=== PATIENT | female | born 1980 | race Caucasian/White ===

== ENCOUNTER 2024-03-30 12:49 | Emergency (ER) | payer MEDICAID, SELFPAY ==
[2024-03-30 12:50] VITALS: BP 91/71; PULSE 130; RESP 20; TEMP 36.6; O2SAT 100; BMI 24.4
--- NOTE | 2024-03-30 13:32 | US_ITS ---
STUDY: ABDOMINAL ULTRASOUND - RIGHT UPPER QUADRANT REASON FOR VISIT: Female, 43 years old RUQ PAIN TECHNIQUE: Ultrasound evaluation of the right upper quadrant was performed with real-time and static martinez-scale imaging. TECHNICAL QUALITY: Limited. Examination limited by bowel gas. COMPARISON: None. FINDINGS: Liver: The liver measures 14.7 cm. There is normal echogenicity of the liver. The bile ducts are within normal limits. There is hepatic color flow. The direction of portal flow is hepatopetal. There is no demonstrated mass lesion. Gallbladder: Normal distended gallbladder. The gallbladder wall measures 3.4 mm. There is a negative sonographic Ramires''s sign. There is no pericholecystic fluid. There are no gallstones. Common Bile Duct (C.B.D.): The common bile duct measures 8.6 mm. Pancreas: Normal size of the head of the pancreas. Body and tail not visualized due to overlying bowel gas. There is normal echogenicity of the pancreas. There is no demonstrated pancreatic mass or cyst. Right Kidney: Normal size of the right kidney. The right kidney measures 9.1 cm x 5.7 cm x 4.4 cm. Normal renal cortex. The right cortex measures 1.2 cm. There is no demonstrated renal mass or cyst. There is no right hydronephrosis. US/Gallbladder IMPRESSION: Normal right upper quadrant ultrasound examination. Limited visualization of the body and tail portions of the pancreas. Electronically Signed: Magen Garcia MD at 15:39 EDT ,
--- NOTE | 2024-03-30 13:44 | EX.ED.DYSGE1 ---
HPI History of Present Illness Chief Complaint: Abd Pain Narrative Narrative: Chief complaint and HPI: Right upper quadrant abdominal pain. 43-year-old female with history of thoracic compression fractures with chronic pain, previous heroin abuse on Suboxone presents for evaluation of right upper quadrant abdominal pain. Patient states for the past couple days she has been having right upper quadrant abdominal pain. She endorses nausea and a couple episodes of nonbilious nonbloody emesis. She denies any fever, chills, URI symptoms, shortness of breath, chest pain, diarrhea, constipation, dysuria. The triage note states that the patient was complaining of chest pain, she denies this to me. She does endorse a mild cough. Patient has a history of a previous PEG tube in which she states she had it due to decreased p.o. intake from depression. It was prescribed for weight gain. Review of systems: See HPI Medications: As listed on the chart Allergies: As listed on the chart PFSH: Per chart Vital signs: As listed on the chart. Reviewed. Physical exam: Gen: A&O x3, NAD Head: Normocephalic, atraumatic Eyes: No sclera icterus, conjunctiva clear ENT: Dry mucous membranes Neck: Trachea midline, No JVD CV: Tachycardic, regular rhythm, no murmurs, no peripheral edema Resp: Lungs CTA BL, no w/r/c GI: Abd soft, non-distended, tender to palpation in the right upper quadrant, negative Ramires sign, no rebound or rigidity, healed previous G-tube ostomy Musc: Full ROM, no deformity Skin: Warm, dry Neuro: Alert, oriented, grossly intact, sensation intact Psych: Cooperative, anxious PFSH PFSH Allergy/AdvReac Type Severity Reaction Status Date / Time shellfish derived Allergy Severe Anaphylaxis Verified 03/30/24 12:53 phenytoin (From Dilantin) AdvReac Intermediate Vomiting Verified 03/30/24 12:53 Social History Smoking Status: Unknown if ever smoked EXAM Physical Exam Const Vital Signs: 03/30/24 12:50 Temperature 98 F Temperature Source Temporal Pulse Rate 130 H Respiratory Rate 20 H Blood Pressure 91/71 Blood Pressure Mean 77 Pulse Ox 100 Oxygen Delivery Method Room Air MDM MDM MDM Narrative Medical decision making narrative: 43-year-old female with history of chronic back pain, previous heroin abuse on Suboxone presents for evaluation of right upper quadrant abdominal pain. Differential diagnosis includes but is not limited to gastritis, cholelithiasis, cholecystitis, pancreatitis, viral illness. On presentation patient is tachycardic I suspect that this is likely due to dehydration as well as pain. Patient is also very anxious . NS bolus, morphine, Zofran, Pepcid ordered for pain. Abdominal pain workup ordered including ultrasound of the right upper quadrant. Will get chest x-ray to assess her cough. Laboratory workup as well as ultrasound pending at this time. Patient signed out to oncoming physician, final disposition pending results. Diagnostic: Interpreted by me/EM physician: Chest x-ray with no pneumonia, effusion, pneumothorax, cardiomegaly Impression: 1. Right upper quadrant abdominal pain 2. Cough 3. History of Heroin abuse on Suboxone Radiography Diagnostic Testing: Clinical Impression(s) from Imaging Studies Chest X-Ray 03/30/24 14:02 IMPRESSION: Normal x-ray examination of the chest. Electronically Signed: Magen Garcia MD at 14:15 EDT , Discharge Plan Triage Chief Complaint: Abd Pain ED Provider: Cipriano Samson Dx/Rx/DC Orders Primary Care Provider: Care Physician,No Primary Referrals: Care Physician,No Primary [Primary Care Provider] - Print Language: Filipino
--- NOTE | 2024-03-30 14:02 | RAD_ITS ---
STUDY: X-RAY CHEST REASON FOR EXAM: Female, 43 years old. Cough TECHNIQUE: Single AP portable view of the chest. COMPARISON: None. FINDINGS: The lungs are clear and expanded. There is no demonstrated pleural abnormality. Normal size heart. Normal mediastinum and ace. Normal visualized pulmonary arteries. Normal visualized aortic arch and descending thoracic aorta. Normal visualized thoracic spine. Normal visualized ribs, clavicles, and shoulders. There is no demonstrated abnormality of the visualized soft tissue structures of the upper abdomen. RAD/Chest 1 View (Portable) IMPRESSION: Normal x-ray examination of the chest. Electronically Signed: Magen Garcia MD at 14:15 EDT ,
[2024-03-30] MEDS: Ondansetron 4 MG/2 ML Vial IV (15:53)
[2024-03-30] MEDS: Morphine 4 MG/ML Syringe IV (15:53)
[2024-03-30] MEDS: 0.9% Normal Saline (1000mL) 1,000 ML 999 ML IV (15:54)
[2024-03-30] MEDS: Famotidine 200 MG/20 ML MDV 20 MG in 0.9% Normal Saline (Pres. free 8 ML 300 MG IV (15:57)
[2024-03-30 16:00] VITALS: BP 112/86; PULSE 74; RESP 16; O2SAT 98
[2024-03-30 16:00] LABS: ALB/GLOB Ratio 0.9 RATIO (0.9-2.4); AST(SGOT) 35 U/L (15-37); Alanine Aminotransfer ALT/SGPT 19 U/L (13-56); Albumin, Serum 3.4 g/dL (3.2-5.0); Alkaline Phosphatase 87 U/L (45-117); Anion Gap 13 (5-15); BUN 27 mg/dL (7-18); BUN/Creat Ratio 37.9 RATIO (10-20); Calcium,Total 9.2 mg/dL (8.5-10.1); Chloride 99 mmol/L (98-107); Creatinine, Serum 0.71 mg/dL (0.55-1.02); EST Glomerular Filtration Rate 94 mL/min (>60); Est Glom Filt Rate - Afr Amer 114 mL/min (>60); Estimated Creatinine Clearance 78.62 ml/min; Globulin 3.6 g/dL (2.2-4.2); Glucose 126 mg/dL (74-106); Lipase 14 U/L (13-75); Potassium 3.4 mmol/L (3.5-5.1); Sodium Level 139 mmol/L (136-145)
[2024-03-30 18:00] VITALS: BP 114/79; PULSE 71; RESP 16; O2SAT 99
[2024-03-30 18:13] LABS: Mucous, Urine 0 SEEN /hpf (<or=2+); Red Blood Cells-Urine 0 SEEN /hpf (0-5)
[2024-03-30 18:18] LABS: Color, Urine Amber (Yellow); Glucose, Dipstick Normal (Normal); Ketone-Dipstick Negative (Negative); Leukocyte Esterase-Dipstick 100 /ul (Negative); Nitrite-Dipstick Negative (Negative); Occult Blood-Urine Negative /ul (Negative); Protein-Dipstick 30 mg/dl (Negative); Specific Gravity, Urine 1.015 (1.002-1.030); Urine Bilirubin Dipstick Negative (Negative); Urine Clarity Sl. Cloudy (Clear); Urine Urobilinogen Normal (Normal)
[2024-03-30 18:30] LABS: Bacteria 1+ /hpf (None Seen); Squamous Epithelial Cells - UA 5-10 SEEN /hpf (5-10); White Blood Cells 5-10 SEEN /hpf (0-5)
[2024-03-30 18:31] LABS: Internal QC Validated? YES +Cl - CLEAR BKGD; Pregnancy, Urine Negative Negative
[2024-03-30 19:04] VITALS: BP 114/79; PULSE 71; RESP 16; TEMP 36.6; O2SAT 99
== END 2024-03-30 19:08 | disposition home or self-care (01) ==
PROVIDERS: Surgery; Emergency Provider Emergency Medicine; Visit Provider Emergency Medicine
DX: R10.11 Right upper quadrant pain (principal); R05.9 Cough, unspecified
CPT/HCPCS: 36415; 71045; 76705; 80053; 81001; 81025; 83690; 96361; 96374; 96375; 99282; J7030; A4216; J2405; J3490

== ENCOUNTER 2024-05-14 16:35 | Emergency (ER) | payer OTHER, MEDICAID, SELFPAY ==
[2024-05-14 16:37] VITALS: BP 137/79; PULSE 132; RESP 18; TEMP 36.3; O2SAT 98; BMI 23.6
--- NOTE | 2024-05-14 17:15 | EDS_ITS ---
HPI <SHERRI Floyd - Last Filed: 05/14/24 21:55> HPI - GI History of Present Illness Chief Complaint: Abd Pain Narrative Narrative: Patient presenting today with epigastric and left upper quadrant abdominal pain she has had over the past 2 weeks. She reports a history of esophagitis and pancreatitis. She was taking Carafate and Protonix daily for this but has been out of it for the past 2 months. She recently moved to the area from [place], she has not established with a PCP or GI here. She reports that over the past 2 days her pain has worsened and she has had several episodes of nausea and vomiting. She reports feeling dehydrated. She has had a decreased appetite and now is also constipated. She denies any history of previous abdominal surgeries. She did have a feeding tube in place in the past due to weight loss from depression. She has a history of heroin abuse on Suboxone. She denies any fevers or chills. [facility] <SHERRI Floyd - Last Filed: 05/14/24 21:55> [facility] Medical History Esophagitis GERD (gastroesophageal reflux disease) Pancreatitis Home Medications ?Medication ?Instructions ?Recorded ?Last Taken ?Type buprenorphine 8 mg-naloxone 2 mg 0 ea sublingual 05/14/24 Unknown History sublingual film bupropion HCl 150 mg 24 hr tablet, 150 mg PO 05/14/24 Unknown History extended release buspirone 15 mg tablet 15 mg PO TID 05/14/24 Unknown History hydroxyzine pamoate 50 mg capsule 50 mg PO BID 05/14/24 Unknown History lamotrigine 100 mg tablet 100 mg PO BID 05/14/24 Unknown History ondansetron 4 mg disintegrating 4 mg PO Q8H PRN PRN Nausea #10 tabs 05/14/24 Unknown Rx tablet pantoprazole 40 mg tablet,delayed 40 mg PO DAILY #21 tabs 05/14/24 Unknown Rx release (Protonix) prazosin 2 mg capsule 2 mg PO QHS 05/14/24 Unknown History quetiapine 100 mg tablet 100 mg PO QHS 05/14/24 Unknown History quetiapine 400 mg tablet 400 mg PO QHS 05/14/24 Unknown History quetiapine 50 mg tablet 50 mg PO DAILY 05/14/24 Unknown History sucralfate 1 gram tablet (Carafate) 1 g PO BID 7 days #14 tabs 05/14/24 Unknown Rx trazodone 100 mg tablet 200 mg PO QHS 05/14/24 Unknown History Allergy/AdvReac Type Severity Reaction Status Date / Time shellfish derived Allergy Severe Anaphylaxis Verified 05/14/24 16:43 phenytoin (From Dilantin) AdvReac Intermediate Vomiting Verified 05/14/24 16:43 Social History Smoking Status: Current every day smoker tobacco type: e-cigarettes ROS <SHERRI Floyd - Last Filed: 05/14/24 21:55> ROS ED Constitutional Constitutional ED: Denies chills or fever(s) Cardiovascular Cardiovascular: Denies chest pain Respiratory/Chest Respiratory/Chest: Denies dyspnea Gastrointestinal Gastrointestinal: Reports abdominal pain, constipation, nausea and vomiting; Den ies diarrhea or melena Genitourinary Genitourinary ED: Denies dysuria, hematuria or urinary urgency Musculoskeletal Musculoskeletal: Denies arthralgias or myalgias Integumentary Denies rash Neurologic Neurologic: Denies weakness EXAM <SHERRI Floyd - Last Filed: 05/14/24 21:55> Physical Exam Const Vital Signs: 05/14/24 16:37 05/14/24 18:35 05/14/24 20:00 Temperature 97.4 F L Temperature Source Oral Pulse Rate 132 H 106 H 126 H Respiratory Rate 18 18 19 H Blood Pressure 137/79 H 128/84 H 106/60 Blood Pressure Mean 98 98 75 Pulse Ox 98 98 95 Oxygen Delivery Method Room Air 05/14/24 22:00 05/14/24 22:10 Temperature 98.1 F Temperature Source Pulse Rate 102 H 102 H Respiratory Rate 14 14 Blood Pressure 106/84 H 106/84 H Blood Pressure Mean 91 91 Pulse Ox 98 98 Oxygen Delivery Method Positive well nourished, well developed and no apparent distress General Appearance ED: well developed HEENT Reports normocephalic and head/scalp atraumatic Mouth ED: Yes moist mucous membranes normal Eyes PERRL and EOMs intact bilaterally Neck full ROM and supple Chest Wall inspection of chest normal Resp normal respiratory effort and clear to auscultation bilaterally Cardio regular rate and regular rhythm GI soft to palpation, non-distended and no masses GI Narrative: Epigastric and left upper quadrant tenderness to palpation, negative McBurney's point tenderness Back/Spine normal ROM and normal to inspection Extremity normal to inspection and full ROM Neuro oriented x3, CN's II-XII intact bilaterally, moves all extremities, no focal motor deficits and no sensory deficits noted Sensorium / Orientation: awake and alert Psych mental status grossly normal and thought process normal Skin no rashes or lesions noted and no wounds <Dr. George Harris DO - Last Filed: 05/14/24 22:28> Physical Exam Const Vital Signs: 05/14/24 16:37 05/14/24 18:35 05/14/24 20:00 Temperature 97.4 F L Temperature Source Oral Pulse Rate 132 H 106 H 126 H Respiratory Rate 18 18 19 H Blood Pressure 137/79 H 128/84 H 106/60 Blood Pressure Mean 98 98 75 Pulse Ox 98 98 95 Oxygen Delivery Method Room Air 05/14/24 22:00 05/14/24 22:10 Temperature 98.1 F Temperature Source Pulse Rate 102 H 102 H Respiratory Rate 14 14 Blood Pressure 106/84 H 106/84 H Blood Pressure Mean 91 91 Pulse Ox 98 98 Oxygen Delivery Method MDM <SHERRI Floyd - Last Filed: 05/14/24 21:55> [facility] Narrative Medical decision making narrative: Presenting today with epigastric and left upper quadrant abdominal pain she has had for 2 weeks. She does have a history of esophagitis and pancreatitis. On examination she does appear dry, she is tachycardic. She will be given IV fluids. Abdominal labs will be obtained as well as a CT scan of the abdomen and pelvis. Her WBC is 23,000 which could be reactive given her vomiting, sodium of 135, UA shows 1+ bacteria [address] scan of the abdomen and pelvis shows distal esophageal wall thickening and gastritis. She was medicated here with IV Zofran, Carafate, Protonix, and a GI cocktail. She does not want narcotic pain medicine as she is on Suboxone. I did write her a prescription for Protonix and Carafate. I have given her a referral for GI. She will be discharged home in stable condition. I have personally performed a face to face assessment of the patient and have reviewed the AYSHA Note. I performed a substantive portion of the visit including all aspects of the following. My alicea findings include: History is [patient presents to the emergency department with complaint of abdominal pain. She states she has had pain for about 2 weeks. She recently moved to the area from [place]. She has history of esophagitis and history of pancreatitis. She complains of frequent nausea and vomiting. She has been without her Carafate and without her Protonix. Patient denies urinary symptoms. She tells me she has not had a bowel movement in about a week and a half. She denies any blood in her emesis. She has history of feeding tube at the age of 15 because she lost significant weight and she cannot tell me why.] Exam is [HEENT-PERRLA, EOMI. Cranial nerves II through XII grossly intact. TMs clear. Mucous membranes moist. No adenopathy. Cardiovascular-regular rate and rhythm without murmur or ectopy Lungs-clear to auscultation, chest wall stable without crepitus or subcu emphysema Abdomen-normoactive bowel sounds, soft. Patient is diffuse tenderness over the epigastric region and left upper quadrant with guarding. There is no rebound, rigidity, peritoneal signs. No mass palpated. Extremities-intact ?4, normal range of motion, normal pulses, atraumatic] Medical Decison Making [patient with history of gastritis as well as history of esophagitis and history of pancreatitis presents with abdominal pain that is been ongoing for 2 weeks. She is also complaining of vomiting. She has been without her medications. IV line established. She was ordered a liter fluid bolus as she is tachycardic. She was ordered a second liter fluid bolus as well. CBC with differential obtained showed a white count of 23,000 with hemoglobin 14.9 and platelet count of 367. Chemistries unremarkable. LFTs unremarkable. Lipase was normal at 32 hCG was negative. Urinalysis was unremarkable. CT scan of the abdomen and pelvis showed thickening of the distal esophagus as well as of the stomach which would be in keeping with esophagitis and gastritis. I suspect her leukocytosis likely reactive from frequent emesis. Patient was given a dose of Carafate p.o. She does not want narcotic pain medication as she is on Suboxone. She has been clean of drugs from what she says for 5 years. Patient will be given a prescription for Zofran as well as Carafate and Protonix. She will be referred to GI for follow-up.] Other additions or changes: [None] Lab Data Attestation: I reviewed the patient's lab results. Labs: Laboratory Results - last 24 hr 05/14/24 05/14/24 18:15 19:12 WBC 23.0 H RBC 5.91 H Hgb 14.9 Hct 45.0 MCV 76.1 L MCH 25.2 L MCHC 33.1 RDW Std Deviation 41.8 RDW Coeff of Jovany 15.5 H Plt Count 367 MPV 9.8 Immature Gran % (Auto) 0.700 Neut % (Auto) 84.9 H Lymph % (Auto) 9.3 L Clar[place] % (Auto) 4.9 Eos % (Auto) 0.0 Baso % (Auto) 0.2 Absolute Neuts (auto) 19.5 H Absolute Lymphs (auto) 2.15 Nucleated RBC % 0 Sodium 135 L Potassium 3.5 Chloride 99 Carbon Dioxide 28.0 Anion Gap 8 BUN 15 Creatinine 0.60 Estim Creat Clear Calc 85.94 Est GFR (MDRD) Af Amer 139 Est GFR (MDRD) Non-Af 115 BUN/Creatinine Ratio 24.9 H Glucose 147 H Calcium 9.3 Total Bilirubin 0.60 AST 19 ALT 15 Alkaline Phosphatase 94 Total Protein 8.4 H Albumin 3.8 Globulin 4.6 H Albumin/Globulin Ratio 0.8 L Lipase 32 Serum , Qual NEGATIVE Urine Color Yellow Urine Clarity Clear Urine pH 7.0 Ur Specific [place] 1.015 Urine Protein 30 H Urine Glucose (UA) Normal Urine Ketones 5 H Urine Occult Blood 10 H Urine Nitrite Negative Urine Bilirubin Negative Urine Urobilinogen Normal Ur Leukocyte Esterase 25 H Urine RBC 0-5 SEEN Urine WBC 5-10 SEEN Ur Squamous Epith Cells 5-10 SEEN Urine Bacteria 1+ Hyaline Casts 0-5 SEEN Urine Mucus 0 SEEN Radiography Diagnostic Testing: Clinical Impression(s) from Imaging Studies Abdomen/Pelvis CT 05/14/24 18:55 IMPRESSION: Distal esophageal wall thickening and small hiatal hernia. Possible gastric wall thickening suggesting gastritis. Electronically Signed: Les Chery DO at 19:56 EST , <Dr. George Harris DO - Last Filed: 05/14/24 22:28> [facility] Narrative Medical decision making narrative: I have personally performed a face to face assessment of the patient and have reviewed the AYSHA Note. I performed a substantive portion of the visit including all aspects of the following. My alicea findings include: History is [patient presents to the emergency department with complaint of abdominal pain. She states she has had pain for about 2 weeks. She recently moved to the area from [place]. She has history of esophagitis and history of pancreatitis. She complains of frequent nausea and vomiting. She has been without her Carafate and without her Protonix. Patient denies urinary symptoms. She tells me she has not had a bowel movement in about a week and a half. She denies any blood in her emesis. She has history of feeding tube at the age of 15 because she lost significant weight and she cannot tell me why.] Exam is [HEENT-PERRLA, EOMI. Cranial nerves II through XII grossly intact. TMs clear. Mucous membranes moist. No adenopathy. Cardiovascular-regular rate and rhythm without murmur or ectopy Lungs-clear to auscultation, chest wall stable without crepitus or subcu emphysema Abdomen-normoactive bowel sounds, soft. Patient is diffuse tenderness over the epigastric region and left upper quadrant with guarding. There is no rebound, rigidity, peritoneal signs. No mass palpated. Extremities-intact ?4, normal range of motion, normal pulses, atraumatic] Medical Decison Making [patient with history of gastritis as well as history of esophagitis and history of pancreatitis presents with abdominal pain that is been ongoing for 2 weeks. She is also complaining of vomiting. She has been without her medications. IV line established. She was ordered a liter fluid bolus as she is tachycardic. She was ordered a second liter fluid bolus as well. CBC with differential obtained showed a white count of 23,000 with hemoglobin 14.9 and platelet count of 367. Chemistries unremarkable. LFTs unremarkable. Lipase was normal at 32 hCG was negative. Urinalysis was unremarkable. CT scan of the abdomen and pelvis showed thickening of the distal esophagus as well as of the stomach which would be in keeping with esophagitis and gastritis. I suspect her leukocytosis likely reactive from frequent emesis. Patient was given a dose of Carafate p.o. She does not want narcotic pain medication as she is on Suboxone. She has been clean of drugs from what she says for 5 years. Patient will be given a prescription for Zofran as well as Carafate and Protonix. She will be referred to GI for follow-up.] Other additions or changes: [None] Lab Data Labs: Laboratory Results - last 24 hr 05/14/24 05/14/24 18:15 19:12 WBC 23.0 H RBC 5.91 H Hgb 14.9 Hct 45.0 MCV 76.1 L MCH 25.2 L MCHC 33.1 RDW Std Deviation 41.8 RDW Coeff of Jovany 15.5 H Plt Count 367 MPV 9.8 Immature Gran % (Auto) 0.700 Neut % (Auto) 84.9 H Lymph % (Auto) 9.3 L Clar[place] % (Auto) 4.9 Eos % (Auto) 0.0 Baso % (Auto) 0.2 Absolute Neuts (auto) 19.5 H Absolute Lymphs (auto) 2.15 Nucleated RBC % 0 Sodium 135 L Potassium 3.5 Chloride 99 Carbon Dioxide 28.0 Anion Gap 8 BUN 15 Creatinine 0.60 Estim Creat Clear Calc 85.94 Est GFR (MDRD) Af Amer 139 Est GFR (MDRD) Non-Af 115 BUN/Creatinine Ratio 24.9 H Glucose 147 H Calcium 9.3 Total Bilirubin 0.60 AST 19 ALT 15 Alkaline Phosphatase 94 Total Protein 8.4 H Albumin 3.8 Globulin 4.6 H Albumin/Globulin Ratio 0.8 L Lipase 32 Serum , Qual NEGATIVE Urine Color Yellow Urine Clarity Clear Urine pH 7.0 Ur Specific [place] 1.015 Urine Protein 30 H Urine Glucose (UA) Normal Urine Ketones 5 H Urine Occult Blood 10 H Urine Nitrite Negative Urine Bilirubin Negative Urine Urobilinogen Normal Ur Leukocyte Esterase 25 H Urine RBC 0-5 SEEN Urine WBC 5-10 SEEN Ur Squamous Epith Cells 5-10 SEEN Urine Bacteria 1+ Hyaline Casts 0-5 SEEN Urine Mucus 0 SEEN Radiography Diagnostic Testing: Clinical Impression(s) from Imaging Studies Abdomen/Pelvis CT 05/14/24 18:55 IMPRESSION: Distal esophageal wall thickening and small hiatal hernia. Possible gastric wall thickening suggesting gastritis. Electronically Signed: Les Chery DO at 19:56 EST Reading Location ID and State: [facility] / [place] Tel [phone], Service support , Discharge Plan Triage Chief Complaint: Abd Pain ED Midlevel Provider: Meghna Noyola ED Provider: George Harris Dx/Rx/DC Orders Clinical Impression: Gastritis, Esophagitis, Abdominal pain, Leukocytosis, Dehydration Instructions: Esophagitis, ED Gastritis (Adult) Prescriptions: New pantoprazole [Protonix] 40 mg tablet,delayed release (DR/EC) 40 mg PO DAILY Qty: 21 0RF ondansetron 4 mg tablet,disintegrating 4 mg PO Q8H PRN PRN (Reason: Nausea) Qty: 10 0RF sucralfate [Carafate] 1 gram tablet 1 g PO BID 7 Days Qty: 14 0RF No Action hydroxyzine pamoate 50 mg capsule 50 mg PO BID quetiapine 100 mg tablet 100 mg PO QHS trazodone 100 mg tablet 200 mg PO QHS lamotrigine 100 mg tablet 100 mg PO BID prazosin 2 mg capsule 2 mg PO QHS buspirone 15 mg tablet 15 mg PO TID bupropion HCl 150 mg tablet extended release 24 hr 150 mg PO quetiapine 50 mg tablet 50 mg PO DAILY quetiapine 400 mg tablet 400 mg PO QHS buprenorphine-naloxone 8-2 mg film 0 ea sublingual Primary Care Provider: Care Physician,No Primary Referrals: Mic Beltran DO [Med Staff - Active Staff] - 1 Week Care Physician,No Primary [Primary Care Provider] - Activity Restrictions/Additional Instructions: Follow-up with GI. Return for any worsening symptoms or other concerns. Print Language: Bulgarian Disposition Disposition: Home, Self Care Discharge Date/Time: 05/14/24 22:11
[2024-05-14] MEDS: Mag Hydrox/Al Hydrox/Simeth 30 ML UDC PO (18:27)
[2024-05-14] MEDS: Pantoprazole Sodium 40 MG in 0.9% Normal Saline (100mL MB+) 100 ML 330 MG IV (18:27)
[2024-05-14] MEDS: 0.9% Normal Saline (1000mL) 1,000 ML 999 ML IV ×2 (18:27→20:53)
[2024-05-14] MEDS: Lidocaine 2% Viscous15 ML UDC 15 ML PO (18:27)
[2024-05-14] MEDS: Ondansetron 4 MG/2 ML Vial IV (18:28)
[2024-05-14 18:34] LABS: Internal QC Validated? YES +Cl - CLEAR BKGD; Pregnancy, Serum, hCG Quali. NEGATIVE Negative
[2024-05-14 18:35] VITALS: BP 128/84; PULSE 106; RESP 18; O2SAT 98
[2024-05-14 18:37] LABS: Absolute Lymphocyte Count 2.15 X10^3/uL (0.83-4.51); Absolute Neutrophil Count 19.5 X10^3/uL (2.0-7.7); Basophil# 0.05 X10^3/uL; Basophil% 0.2 % (0-1); Hemoglobin 14.9 g/dL (12.0-15.0); Lymphocyte # 2.15 X10^3/ul (0.83-4.51); Lymphocyte % 9.3 % (19-41); Mean Corp Hgb Conc 33.1 g/dL (32-36); Mean Corpuscular Hgb 25.2 pg (27.0-32.0); Mean Corpuscular Volume 76.1 fL (81-99); Mean Platelet Vol. 9.8 fl (6.2-12.0); Monocyte# 1.12 X10^3/uL; Monocyte% 4.9 % (0-10); NRBC Flagged by Analyzer 0 % (0-5); Neutrophil # 19.53 X10^3/uL (2.7-7.7); Neutrophil % 84.9 % (47-70); Platelet Count 367 K/mm3 (150-450); RBC Distribution Width CV 15.5 % (11.6-14.6); RBC Distribution Width SD 41.8 fl (35.1-43.9); Red Blood Count 5.91 M/mm3 (4.2-5.4)
[2024-05-14 18:42] LABS: ALB/GLOB Ratio 0.8 RATIO (0.9-2.4); AST(SGOT) 19 U/L (15-37); Alanine Aminotransfer ALT/SGPT 15 U/L (13-56); Albumin, Serum 3.8 g/dL (3.2-5.0); Alkaline Phosphatase 94 U/L (45-117); Anion Gap 8 (5-15); BUN 15 mg/dL (7-18); BUN/Creat Ratio 24.9 RATIO (10-20); Calcium,Total 9.3 mg/dL (8.5-10.1); Chloride 99 mmol/L (98-107); EST Glomerular Filtration Rate 115 mL/min (>60); Est Glom Filt Rate - Afr Amer 139 mL/min (>60); Estimated Creatinine Clearance 85.94 ml/min; Globulin 4.6 g/dL (2.2-4.2); Glucose 147 mg/dL (74-106); Lipase 32 U/L (13-75); Potassium 3.5 mmol/L (3.5-5.1); Protein, Total 8.4 g/dL (6.4-8.2); Sodium Level 135 mmol/L (136-145)
--- NOTE | 2024-05-14 18:55 | CT_ITS ---
STUDY: CT ABDOMEN AND PELVIS WITHOUT CONTRAST REASON FOR EXAM: Female, 43 years old. abdominal pain RADIATION DOSAGE (If Supplied By Facility): CTDIvol = ( 6.04 ) mGy, DLP = ( 282.37 ) mGycm TECHNIQUE: Transaxial images were obtained from the dome of the diaphragm to the symphysis pubis without oral contrast, and without intravenous contrast. Sagittal and coronal images were reconstructed. Individualized dose optimization techniques were used for this CT. COMPARISON: None. FINDINGS: The visualized lung bases are unremarkable. The visualized portions of the heart are within normal limits. Normal liver. Normal gallbladder and extrahepatic biliary system. Normal spleen. Normal pancreas. Normal bilateral adrenal glands. Normal right kidney. Normal left kidney. Distal esophageal wall thickening and small hiatal hernia. Possible gastric wall thickening suggesting gastritis. Normal small intestine. Normal colon. The appendix is not visualized. Normal abdominal aorta. Normal inferior vena cava. Normal retroperitoneum. Normal urinary bladder. Normal abdominal wall. Moderate compression of T10 and mild compression of T12 with previous vertebroplasty. CT/Abdomen/Pelvis without Cont IMPRESSION: Distal esophageal wall thickening and small hiatal hernia. Possible gastric wall thickening suggesting gastritis. Electronically Signed: Les Chery DO at 19:56 EST Reading Location ID and State: [facility] / [place] Tel [phone], Service support ,
[2024-05-14 19:20] LABS: Mucous, Urine 0 SEEN /hpf (<or=2+)
[2024-05-14 19:26] LABS: Color, Urine Yellow (Yellow); Glucose, Dipstick Normal (Normal); Ketone-Dipstick 5 mg/dl (Negative); Leukocyte Esterase-Dipstick 25 /ul (Negative); Nitrite-Dipstick Negative (Negative); Occult Blood-Urine 10 /ul (Negative); Protein-Dipstick 30 mg/dl (Negative); Specific Gravity, Urine 1.015 (1.002-1.030); Urine Bilirubin Dipstick Negative (Negative); Urine Clarity Clear (Clear); Urine Urobilinogen Normal (Normal)
[2024-05-14 20:00] VITALS: BP 106/60; PULSE 126; RESP 19; O2SAT 95
[2024-05-14 20:04] LABS: Bacteria 1+ /hpf (None Seen); Hyaline Cast 0-5 SEEN /lpf (0-5); Red Blood Cells-Urine 0-5 SEEN /hpf (0-5); Squamous Epithelial Cells - UA 5-10 SEEN /hpf (5-10); White Blood Cells 5-10 SEEN /hpf (0-5)
[2024-05-14] MEDS: Sucralfate 1 GM Tablet PO (20:53)
[2024-05-14 22:00] VITALS: BP 106/84; PULSE 102; RESP 14; O2SAT 98
[2024-05-14 22:10] VITALS: BP 106/84; PULSE 102; RESP 14; TEMP 36.7; O2SAT 98
== END 2024-05-14 22:11 | disposition home or self-care (01) ==
PROVIDERS: Physician Assistant; Emergency Provider Emergency Medicine; Visit Provider Emergency Medicine
DX: K29.70 Gastritis, unspecified, without bleeding (principal); K21.00 Gastro-esophageal reflux disease with esophagitis, without bleeding; E86.0 Dehydration; D72.829 Elevated white blood cell count, unspecified; F17.290 Nicotine dependence, other tobacco product, uncomplicated
CPT/HCPCS: 74176; 80053; 81001; 83690; 84703; 85025; 96365; 96366; 96375; 99285; J7030; J2405

== ENCOUNTER 2024-06-28 12:47 | Emergency (ER) | payer MEDICAID, SELFPAY ==
[2024-06-28 12:47] VITALS: BP 143/85; PULSE 137; RESP 16; TEMP 36.9; O2SAT 99; BMI 23.4
--- NOTE | 2024-06-28 13:22 | EDS_ITS ---
HPI <MATY Vidal - Last Filed: 06/28/24 17:59> History of Present Illness Chief Complaint: Abd Pain Narrative Narrative: Patient is a 43-year-old female with a long history of chronic back pain, gastroparesis, patient states that she did have a feeding tube at one time. Patient started coming to the emergency department here in and March 2024, this is secondary to moving up here from [place]. Patient has a history of chronic abdominal pain, gastritis. She was seen 2 times previous, both with similar presentations. Patient states of the last 4 days, she has been having epigastric pain, as well as nonstop vomiting. Having difficulty keeping water down. She has not seen a GI specialist yet however she did see a PCP. She states she has been out of her Protonix for a couple days however still takes Carafate. Denies any fever or chills. Denies any blood in her stool or vomit. Most the pain is epigastric. It does not radiate to her back. <Dr. Liv Blair DO - Last Filed: 06/28/24 17:11> History of Present Illness Informant: patient [facility] <MATY Vidal - Last Filed: 06/28/24 17:59> [facility] Medical History Esophagitis GERD (gastroesophageal reflux disease) Pancreatitis Home Medications ?Medication ?Instructions ?Recorded ?Last Taken ?Type buprenorphine 8 mg-naloxone 2 mg 0 ea sublingual 05/14/24 Unknown History sublingual film bupropion HCl 150 mg 24 hr tablet, 150 mg PO 05/14/24 Unknown History extended release buspirone 15 mg tablet 15 mg PO TID 05/14/24 Unknown History hydroxyzine pamoate 50 mg capsule 50 mg PO BID 05/14/24 Unknown History lamotrigine 100 mg tablet 100 mg PO BID 05/14/24 Unknown History ondansetron 4 mg disintegrating 4 mg PO Q8H PRN PRN Nausea #10 tabs 05/14/24 Unknown Rx tablet pantoprazole 40 mg tablet,delayed 40 mg PO DAILY #21 tabs 05/14/24 Unknown Rx release (Protonix) prazosin 2 mg capsule 2 mg PO QHS 05/14/24 Unknown History quetiapine 100 mg tablet 100 mg PO QHS 05/14/24 Unknown History quetiapine 400 mg tablet 400 mg PO QHS 05/14/24 Unknown History quetiapine 50 mg tablet 50 mg PO DAILY 05/14/24 Unknown History sucralfate 1 gram tablet (Carafate) 1 g PO BID 7 days #14 tabs 05/14/24 Unknown Rx trazodone 100 mg tablet 200 mg PO QHS 05/14/24 Unknown History dicyclomine 20 mg tablet 20 mg PO TID #20 tabs 06/28/24 Unknown Rx ondansetron 4 mg disintegrating 4 mg PO Q8H PRN PRN Nausea #20 tabs 06/28/24 Unknown Rx tablet pantoprazole 40 mg tablet,delayed 40 mg PO DAILY #30 tabs 06/28/24 Unknown Rx release (Protonix) Allergy/AdvReac Type Severity Reaction Status Date / Time shellfish derived Allergy Severe Anaphylaxis Verified 06/28/24 12:48 phenytoin (From Dilantin) AdvReac Intermediate Vomiting Verified 06/28/24 12:48 Social History Smoking Status: Current every day smoker tobacco type: e-cigarettes ROS <MATY Vidal - Last Filed: 06/28/24 17:59> ROS ED ROS Narrative Constitutional: Negative for fever, chills, weight loss, weakness Eyes: Negative for vision loss, vision change, double vision ENT: Negative for any sore throat, ear pain, congestion Cardiovascular: Negative for any chest pain, tightness, palpitations Respiratory: Negative for any cough, sputum production, hemoptysis, dyspnea, dyspnea on exertion, orthopnea Gastrointestinal: Negative for any diarrhea, constipation, blood in stool, blood in vomit. Abdominal pain, nausea and vomiting : Negative for any urinary frequency, dysuria, retention, blood in urine Muscle skeletal: Negative for any neck pain, back pain Neurological: Negative for any headache, syncope, dizziness Skin: Negative for any rashes, itching, abrasions, lacerations Psychiatric: Negative for any depression, anxiety, stress, suicidal ideation, homicidal ideation Hematologic: Negative for any excessive bruising, easy bleeding EXAM <MATY Vidal - Last Filed: 06/28/24 17:59> Physical Exam Narrative Exam Narrative: Vital signs reviewed. Patient on my initial evaluation was leaning over the garbage can, she was dry heaving, there is no fluid coming out. HEET: Head normocephalic atraumatic, TMs clear bilaterally. Posterior pharynx is clear, moist mucous membranes. Nares clear bilaterally. Neck: Supple with no lymphadenopathy or tenderness. No signs of meningismus. Cardiac: Regular rate and rhythm no murmurs gallops or rubs, equal peripheral pulses bilaterally. Respiratory: Lungs clear to auscultation bilaterally. No chest tenderness. Abdomen: Soft,nondistended. No abdominal bruit or pulsatile masses. No hepatosplenomegaly. Patient does have tenderness to the epigastric area, however most of it is midline, there is no significant pain to the left or right of the upper abdomen. Active bowel sounds in all quadrants. No peritoneal signs. Extremities: No peripheral edema, no signs of gross trauma or deformity. Active full range of motion of all extremities. Neuro: Cranial nerves II through XII intact, no focal neurological deficits. Skin: Clean dry and intact with no rash, purpura, petechiae, vesicles or pustules. Backs/flank: No CVA tenderness, no midline spinal tenderness, no deformity. Psych: Normal mood and affect. No SI, HI or acute psychosis. Const Vital Signs: 06/28/24 12:47 06/28/24 14:47 06/28/24 16:00 Temperature 98.4 F Temperature Source Oral Pulse Rate 137 H 126 H 122 H Respiratory Rate 16 16 16 Blood Pressure 143/85 H 185/126 H 173/108 H Blood Pressure Mean 104 145 129 Pulse Ox 99 98 98 Oxygen Delivery Method Room Air Room Air Room Air Positive unkempt General Appearance ED: unkempt Psych Appearance: unkempt <Dr. Liv Blair, - Last Filed: 06/28/24 17:11> Physical Exam Const Vital Signs: 06/28/24 12:47 06/28/24 14:47 06/28/24 16:00 Temperature 98.4 F Temperature Source Oral Pulse Rate 137 H 126 H 122 H Respiratory Rate 16 16 16 Blood Pressure 143/85 H 185/126 H 173/108 H Blood Pressure Mean 104 145 129 Pulse Ox 99 98 98 Oxygen Delivery Method Room Air Room Air Room Air MDM <MATY Vidal - Last Filed: 06/28/24 17:59> MDM Lab Data Labs: Laboratory Results - last 24 hr 06/28/24 06/28/24 13:24 16:10 WBC 16.1 H RBC 5.69 H Hgb 13.6 Hct 42.0 MCV 73.8 L MCH 23.9 L MCHC 32.4 RDW Std Deviation 41.9 RDW Coeff of Jovany 16.1 H Plt Count 337 MPV 9.0 Immature Gran % (Auto) 0.600 Neut % (Auto) 84.7 H Lymph % (Auto) 9.1 L [place] % (Auto) 5.5 Eos % (Auto) 0.0 Baso % (Auto) 0.1 Absolute Neuts (auto) 13.7 H Absolute Lymphs (auto) 1.46 Nucleated RBC % 0 Sodium 136 Potassium 2.7 L* Chloride 96 L Carbon Dioxide 30.0 Anion Gap 10 BUN 20 H Creatinine 0.66 Estim Creat Clear Calc 78.13 Est GFR (MDRD) Af Amer 125 Est GFR (MDRD) Non-Af 104 BUN/Creatinine Ratio 30.4 H Glucose 180 H Calcium 9.7 Magnesium 1.6 Total Bilirubin 0.50 AST 13 L ALT 10 L Alkaline Phosphatase 82 Total Protein 8.1 Albumin 3.8 Globulin 4.3 H Albumin/Globulin Ratio 0.9 Lipase 58 Urine Color Yellow Urine Clarity Clear Urine pH 6.0 Ur Specific Ullin 1.015 Urine Protein 30 H Urine Glucose (UA) 50 H Urine Ketones 50 H Urine Occult Blood Negative Urine Nitrite Negative Urine Bilirubin Negative Urine Urobilinogen Normal Ur Leukocyte Esterase 25 H Urine RBC 0 SEEN Urine WBC 0-5 SEEN Ur Squamous Epith Cells 5-10 SEEN Ur Transition Epith Cell 0-5 SEEN Urine Bacteria RARE Urine Mucus 0 SEEN Treatment and Re-Evaluation :: Differential diagnosis includes however is not limited to: Gastroparesis, acute on chronic abdominal pain, gastritis, esophagitis, pneumoperitoneum, viral gastroenteritis Patient does appear uncomfortable, patient was tachycardic however the remainder the vital signs are stable. Speaking with the patient, she has had similar instances before. Patient at this time will receive IV fluids, should be given IV Haldol, IV Pepcid as well as a GI cocktail. Patient was Siv basic laboratory values including urinalysis. Patient will need to be reevaluated. Patient's laboratory values shows a leukocytosis with white blood count 16.1, hemoglobin stable at 13.6. Patient's chemistries show normal creatinine 0.6 this is baseline. BUN of 20, patient's potassium was 2.7 this was replaced orally. Patient's AST and ALT are slightly low. Lipase was negative. There was difficulty getting IV placement on this patient, patient will be reevaluated. Patient states she was vomiting black substance, this was checked for gastric occult this was negative. On reevaluation, patient was redosed with IV Toradol, patient is ambulatory several times in the bathroom. At this time, I spoke with the patient at length, this is a chronic issue, she does need to follow-up with GI specialties. Patient will be given Zofran for home as well as Protonix and Bentyl. She is instructed to follow-up outpatient. She was able to pass p.o. challenge with water as well as applesauce. Happy with the plan of care, all questions answered, stable for discharge. I have personally performed a face to face assessment of the patient and have reviewed the AYSHA Note. I performed a substantive portion of the visit including all aspects of the following. My alicea findings include: History is patient is a 43-year-old female with extensive history including chronic pain, chronic opioid dependency (on Suboxone), gastritis and chronic back pain with prior PEG tube and prior thoracic fractures. She is presenting today for exacerbation of her chronic pain as well as intractable nausea and vomiting. Upon arrival patient is tachycardic but actually mildly hypertensive. She looks uncomfortable and chronically ill but nontoxic. While in the ER she states that she is vomiting black substance. This is sent for Hemoccult but negative. Her hemoglobin is normal. She is given IV Haldol and Pepcid as well as GI cocktail (per her request) in addition to 2 L IV fluids. She is found to be hypokalemic and potassium is 2.7. She is given oral potassium replacement. Patient had a very similar presentation 2 months ago. At that time she actually had a higher leukocytosis and a CT that showed findings of gastritis. Patient started on Carafate at that time as well as Protonix and encouraged to follow-up with GI. It does not appear that patient followed up. Anticipate patient will be reevaluated for symptom improvement, p.o. challenge and can be discharged home with refill of Carafate, Protonix, Zofran and outpatient GI follow-up. Other additions or changes: [None] <Dr. Liv Blair, DO - Last Filed: 06/28/24 17:11> [facility] Lab Data Labs: Laboratory Results - last 24 hr 06/28/24 06/28/24 13:24 16:10 WBC 16.1 H RBC 5.69 H Hgb 13.6 Hct 42.0 MCV 73.8 L MCH 23.9 L MCHC 32.4 RDW Std Deviation 41.9 RDW Coeff of Jovany 16.1 H Plt Count 337 MPV 9.0 Immature Gran % (Auto) 0.600 Neut % (Auto) 84.7 H Lymph % (Auto) 9.1 L [place] % (Auto) 5.5 Eos % (Auto) 0.0 Baso % (Auto) 0.1 Absolute Neuts (auto) 13.7 H Absolute Lymphs (auto) 1.46 Nucleated RBC % 0 Sodium 136 Potassium 2.7 L* Chloride 96 L Carbon Dioxide 30.0 Anion Gap 10 BUN 20 H Creatinine 0.66 Estim Creat Clear Calc 78.13 Est GFR (MDRD) Af Amer 125 Est GFR (MDRD) Non-Af 104 BUN/Creatinine Ratio 30.4 H Glucose 180 H Calcium 9.7 Magnesium 1.6 Total Bilirubin 0.50 AST 13 L ALT 10 L Alkaline Phosphatase 82 Total Protein 8.1 Albumin 3.8 Globulin 4.3 H Albumin/Globulin Ratio 0.9 Lipase 58 Urine Color Yellow Urine Clarity Clear Urine pH 6.0 Ur Specific Ullin 1.015 Urine Protein 30 H Urine Glucose (UA) 50 H Urine Ketones 50 H Urine Occult Blood Negative Urine Nitrite Negative Urine Bilirubin Negative Urine Urobilinogen Normal Ur Leukocyte Esterase 25 H Urine RBC 0 SEEN Urine WBC 0-5 SEEN Ur Squamous Epith Cells 5-10 SEEN Ur Transition Epith Cell 0-5 SEEN Urine Bacteria RARE Urine Mucus 0 SEEN Treatment and Re-Evaluation :: Differential diagnosis includes however is not limited to: Gastroparesis, acute on chronic abdominal pain, gastritis, esophagitis, pneumoperitoneum, viral gastroenteritis Patient does appear uncomfortable, patient was tachycardic however the remainder the vital signs are stable. Speaking with the patient, she has had similar instances before. Patient at this time will receive IV fluids, should be given IV Haldol, IV Pepcid as well as a GI cocktail. Patient was Siv basic laboratory values including urinalysis. Patient will need to be reevaluated. Patient's laboratory values shows a leukocytosis with white blood count 16.1, hemoglobin stable at 13.6. Patient's chemistries show normal creatinine 0.6 this is baseline. BUN of 20, patient's potassium was 2.7 this was replaced orally. Patient's AST and ALT are slightly low. Lipase was negative. There was difficulty getting IV placement on this patient, patient will be reevaluated. Patient states she was vomiting black substance, this was checked for gastric occult this was negative. I have personally performed a face to face assessment of the patient and have reviewed the AYSHA Note. I performed a substantive portion of the visit including all aspects of the following. My alicea findings include: History is patient is a 43-year-old female with extensive history including chronic pain, chronic opioid dependency (on Suboxone), gastritis and chronic back pain with prior PEG tube and prior thoracic fractures. She is presenting today for exacerbation of her chronic pain as well as intractable nausea and vomiting. Upon arrival patient is tachycardic but actually mildly hypertensive. She looks uncomfortable and chronically ill but nontoxic. While in the ER she states that she is vomiting black substance. This is sent for Hemoccult but negative. Her hemoglobin is normal. She is given IV Haldol and Pepcid as well as GI cocktail (per her request) in addition to 2 L IV fluids. She is found to be hypokalemic and potassium is 2.7. She is given oral potassium replacement. Patient had a very similar presentation 2 months ago. At that time she actually had a higher leukocytosis and a CT that showed findings of gastritis. Patient started on Carafate at that time as well as Protonix and encouraged to follow-up with GI. It does not appear that patient followed up. Anticipate patient will be reevaluated for symptom improvement, p.o. challenge and can be discharged home with refill of Carafate, Protonix, Zofran and outpatient GI follow-up. Other additions or changes: [None] Discharge Plan Triage Chief Complaint: Abd Pain ED Midlevel Provider: Lokesh Gaston ED Provider: Liv Blair Dx/Rx/DC Orders Clinical Impression: Gastritis, Gastroparesis Instructions: Gastroparesis, ED Gastritis (Adult) Prescriptions: New pantoprazole [Protonix] 40 mg tablet,delayed release (DR/EC) 40 mg PO DAILY Qty: 30 2RF ondansetron 4 mg tablet,disintegrating 4 mg PO Q8H PRN PRN (Reason: Nausea) Qty: 20 0RF dicyclomine 20 mg tablet 20 mg PO TID Qty: 20 0RF No Action hydroxyzine pamoate 50 mg capsule 50 mg PO BID quetiapine 100 mg tablet 100 mg PO QHS trazodone 100 mg tablet 200 mg PO QHS lamotrigine 100 mg tablet 100 mg PO BID prazosin 2 mg capsule 2 mg PO QHS buspirone 15 mg tablet 15 mg PO TID bupropion HCl 150 mg tablet extended release 24 hr 150 mg PO quetiapine 50 mg tablet 50 mg PO DAILY quetiapine 400 mg tablet 400 mg PO QHS buprenorphine-naloxone 8-2 mg film 0 ea sublingual pantoprazole [Protonix] 40 mg tablet,delayed release (DR/EC) 40 mg PO DAILY Qty: 21 0RF ondansetron 4 mg tablet,disintegrating 4 mg PO Q8H PRN PRN (Reason: Nausea) Qty: 10 0RF sucralfate [Carafate] 1 gram tablet 1 g PO BID 7 Days Qty: 14 0RF Primary Care Provider: Care Physician,No Primary Referrals: Mic Beltran DO [Med Staff - Active Staff] - Care Physician,No Primary [Primary Care Provider] - Print Language: [place] Islander Disposition Disposition: Home, Self Care
[2024-06-28] MEDS: Haloperidol Lactate 5 MG/ML Vial 2 MG IV (13:31)
[2024-06-28 13:32] LABS: Absolute Lymphocyte Count 1.46 X10^3/uL (0.83-4.51); Absolute Neutrophil Count 13.7 X10^3/uL (2.0-7.7); Basophil# 0.02 X10^3/uL; Basophil% 0.1 % (0-1); Hemoglobin 13.6 g/dL (12.0-15.0); Lymphocyte # 1.46 X10^3/ul (0.83-4.51); Lymphocyte % 9.1 % (19-41); Mean Corp Hgb Conc 32.4 g/dL (32-36); Mean Corpuscular Hgb 23.9 pg (27.0-32.0); Mean Corpuscular Volume 73.8 fL (81-99); Monocyte# 0.89 X10^3/uL; Monocyte% 5.5 % (0-10); NRBC Flagged by Analyzer 0 % (0-5); Neutrophil # 13.66 X10^3/uL (2.7-7.7); Neutrophil % 84.7 % (47-70); Platelet Count 337 K/mm3 (150-450); RBC Distribution Width CV 16.1 % (11.6-14.6); RBC Distribution Width SD 41.9 fl (35.1-43.9); Red Blood Count 5.69 M/mm3 (4.2-5.4); White Blood Count 16.1 K/mm3 (4.4-11.0)
[2024-06-28] MEDS: 0.9% Normal Saline (1000mL) 1,000 ML 999 ML IV ×2 (13:32→16:24)
[2024-06-28] MEDS: Famotidine 200 MG/20 ML MDV 20 MG in 0.9% Normal Saline (Pres. free 8 ML 300 MG IV (13:34)
[2024-06-28 13:59] LABS: ALB/GLOB Ratio 0.9 RATIO (0.9-2.4); AST(SGOT) 13 U/L (15-37); Alanine Aminotransfer ALT/SGPT 10 U/L (13-56); Albumin, Serum 3.8 g/dL (3.2-5.0); Alkaline Phosphatase 82 U/L (45-117); Anion Gap 10 (5-15); BUN 20 mg/dL (7-18); BUN/Creat Ratio 30.4 RATIO (10-20); Calcium,Total 9.7 mg/dL (8.5-10.1); Chloride 96 mmol/L (98-107); Creatinine, Serum 0.66 mg/dL (0.55-1.02); EST Glomerular Filtration Rate 104 mL/min (>60); Est Glom Filt Rate - Afr Amer 125 mL/min (>60); Estimated Creatinine Clearance 78.13 ml/min; Globulin 4.3 g/dL (2.2-4.2); Glucose 180 mg/dL (74-106); Lipase 58 U/L (13-75); Potassium 2.7 mmol/L (3.5-5.1); Protein, Total 8.1 g/dL (6.4-8.2); Sodium Level 136 mmol/L (136-145)
[2024-06-28] MEDS: Mag Hydrox/Al Hydrox/Simeth 30 ML UDC PO (14:06)
[2024-06-28] MEDS: Lidocaine 2% Viscous15 ML UDC 15 ML PO (14:07)
[2024-06-28 14:39] LABS: Magnesium 1.6 mg/dL (1.6-2.6)
[2024-06-28 14:47] VITALS: BP 185/126; PULSE 126; RESP 16; O2SAT 98
[2024-06-28 16:00] VITALS: BP 173/108; PULSE 122; RESP 16; O2SAT 98
[2024-06-28 16:19] LABS: Mucous, Urine 0 SEEN /hpf (<or=2+); Red Blood Cells-Urine 0 SEEN /hpf (0-5)
[2024-06-28 16:22] LABS: Color, Urine Yellow (Yellow); Glucose, Dipstick 50 mg/dl (Normal); Ketone-Dipstick 50 mg/dl (Negative); Leukocyte Esterase-Dipstick 25 /ul (Negative); Nitrite-Dipstick Negative (Negative); Occult Blood-Urine Negative /ul (Negative); Protein-Dipstick 30 mg/dl (Negative); Specific Gravity, Urine 1.015 (1.002-1.030); Urine Bilirubin Dipstick Negative (Negative); Urine Clarity Clear (Clear); Urine Urobilinogen Normal (Normal)
[2024-06-28 16:38] LABS: Squamous Epithelial Cells - UA 5-10 SEEN /hpf (5-10); White Blood Cells 0-5 SEEN /hpf (0-5)
[2024-06-28 16:39] LABS: Bacteria RARE /hpf (None Seen); Transitional Epithelial - Ur 0-5 SEEN /hpf (0-5)
[2024-06-28] MEDS: Potassium Chloride Oral Tablet 20 MEQ 40 MEQ PO (16:40)
[2024-06-28] MEDS: Ketorolac 15 MG/ML Vial IV (17:13)
[2024-06-28 18:07] VITALS: BP 162/101; PULSE 110; RESP 16; TEMP 36.6; O2SAT 99
== END 2024-06-28 18:26 | disposition home or self-care (01) ==
PROVIDERS: Nurse Practitioner; Emergency Provider Emergency Medicine; Visit Provider Emergency Medicine
DX: K29.70 Gastritis, unspecified, without bleeding (principal); K31.84 Gastroparesis
CPT/HCPCS: 80053; 81001; 82271; 83690; 83735; 85025; 96365; 96366; 96375; 96376; 99283; A4216

== ENCOUNTER 2024-07-19 06:01 | Emergency (ER) | payer MEDICAID, OTHER, SELFPAY ==
[2024-07-19 06:03] VITALS: BP 158/97; PULSE 107; RESP 18; TEMP 36.6; O2SAT 98; BMI 20.9
[2024-07-19] MEDS: Ketorolac 15 MG/ML Vial IM (06:25)
--- NOTE | 2024-07-19 06:43 | EDS_ITS ---
HPI History of Present Illness Chief Complaint: Back Informant: patient Narrative Narrative: Patient is a 43-year-old female with history of chronic back pain, opioid dependency on Suboxone and anxiety presenting for back pain and being cold. Patient states that she went to have her nails done yesterday and could not get a ride home. She finally finished her nail appointment around 7 PM. Throughout the night she was at [facility] sitting on a bench trying to figure out transportation. She states she was sitting outside and started to get very cold and the cold was aggravating her back pain. She called 911 was brought to the emergency room. She denies any new injuries or falls. She denies any new bowel or bladder complaints. She denies any numbness or tingling in her legs. No other complaints or concerns reported at this time. [facility] Medical History Esophagitis GERD (gastroesophageal reflux disease) Pancreatitis Home Medications ?Medication ?Instructions ?Recorded ?Last Taken ?Type buprenorphine 8 mg-naloxone 2 mg 0 ea sublingual 05/14/24 Unknown History sublingual film bupropion HCl 150 mg 24 hr tablet, 150 mg PO 05/14/24 Unknown History extended release buspirone 15 mg tablet 15 mg PO TID 05/14/24 Unknown History hydroxyzine pamoate 50 mg capsule 50 mg PO BID 05/14/24 Unknown History lamotrigine 100 mg tablet 100 mg PO BID 05/14/24 Unknown History ondansetron 4 mg disintegrating 4 mg PO Q8H PRN PRN Nausea #10 tabs 05/14/24 Unknown Rx tablet pantoprazole 40 mg tablet,delayed 40 mg PO DAILY #21 tabs 05/14/24 Unknown Rx release (Protonix) prazosin 2 mg capsule 2 mg PO QHS 05/14/24 Unknown History quetiapine 100 mg tablet 100 mg PO QHS 05/14/24 Unknown History quetiapine 400 mg tablet 400 mg PO QHS 05/14/24 Unknown History quetiapine 50 mg tablet 50 mg PO DAILY 05/14/24 Unknown History sucralfate 1 gram tablet (Carafate) 1 g PO BID 7 days #14 tabs 05/14/24 Unknown Rx trazodone 100 mg tablet 200 mg PO QHS 05/14/24 Unknown History dicyclomine 20 mg tablet 20 mg PO TID #20 tabs 06/28/24 Unknown Rx ondansetron 4 mg disintegrating 4 mg PO Q8H PRN PRN Nausea #20 tabs 06/28/24 Unknown Rx tablet pantoprazole 40 mg tablet,delayed 40 mg PO DAILY #30 tabs 06/28/24 Unknown Rx release (Protonix) Allergy/AdvReac Type Severity Reaction Status Date / Time shellfish derived Allergy Severe Anaphylaxis Verified 07/19/24 06:07 phenytoin (From Dilantin) AdvReac Intermediate Vomiting Verified 07/19/24 06:07 Social History Smoking Status: Current every day smoker tobacco type: e-cigarettes ROS ROS ED Constitutional Constitutional ED: Reports chills; Denies fever(s) Cardiovascular Cardiovascular: Denies chest pain Respiratory/Chest Respiratory/Chest: Denies dyspnea Gastrointestinal Gastrointestinal: Denies abdominal pain or nausea Musculoskeletal Musculoskeletal: Reports back pain Integumentary Denies rash Neurologic Neurologic: Denies paresthesias or weakness Psychiatric Psychiatric: Reports anxiety Hematologic/Lymphatic Hematologic/Lymphatic: Denies easy bleeding or easy bruising EXAM Physical Exam Const Vital Signs: 07/19/24 06:03 Temperature 97.8 F Temperature Source Oral Pulse Rate 107 H Respiratory Rate 18 Blood Pressure 158/97 H Blood Pressure Mean 117 Pulse Ox 98 Oxygen Delivery Method Room Air Positive well nourished and well developed Constitutional Narrative: Patient is shivering General Appearance ED: well developed and NAD HEENT Reports moist mucous membranes Eyes PERRL Neck supple General: Negative for tenderness Resp normal respiratory effort Cardio regular rate, regular rhythm and no murmurs GI normal to inspection, nondistended, normoactive bowel sounds and soft to palpation Back/Spine Back/Spine Narrative: Normal range of motion of the back. Patient has tenderness to palpation of the mid thoracic region diffusely. States this for her chronic back pain is. Cervical Spine: Negative for cervical spine tenderness Thoracic Spine / Upper Back: paraspinal muscle tenderness Extremity normal to inspection Neuro oriented x3 Sensorium / Orientation: alert Psych Psych Narrative: Anxious MDM MDM MDM Narrative Medical decision making narrative: Patient is evaluated for acute on chronic back pain. She is exacerbated by b eing in the cold all night. Patient was stranded and did not have a way to get home last night. Patient's vital sign significant for mild hypertension and tachycardia upon arrival. Is quite anxious. Differential includes hypothermia, acute on chronic back pain, pneumonia. Patient has clear breath sounds. She is not hypoxic. Low suspicion for pneumonia or referred thoracic pain from her lungs. Is given dose of IM Toradol in the emergency room. Suspect a lot of her presentation was social and associated with her being in the cold and not having any transportation. Will ambulate her and discharge her home. Will attempt to help with transportation now that his morning time to help her get home safely. Patient now states she is concerned that it is her kidneys causing her pain. Wi ll obtain urinalysis to ensure she does not have urinary tract infection/kidney infection. Low clinical suspicion and suspect this is still muscle skeletal. Discharge Plan Triage Chief Complaint: Back ED Provider: Liv Blair Dx/Rx/DC Orders Clinical Impression: Acute on chronic back pain Instructions: ED Back Pain (Acute or Chronic) Prescriptions: No Action hydroxyzine pamoate 50 mg capsule 50 mg PO BID quetiapine 100 mg tablet 100 mg PO QHS trazodone 100 mg tablet 200 mg PO QHS lamotrigine 100 mg tablet 100 mg PO BID prazosin 2 mg capsule 2 mg PO QHS buspirone 15 mg tablet 15 mg PO TID bupropion HCl 150 mg tablet extended release 24 hr 150 mg PO quetiapine 50 mg tablet 50 mg PO DAILY quetiapine 400 mg tablet 400 mg PO QHS buprenorphine-naloxone 8-2 mg film 0 ea sublingual pantoprazole [Protonix] 40 mg tablet,delayed release (DR/EC) 40 mg PO DAILY Qty: 21 0RF ondansetron 4 mg tablet,disintegrating 4 mg PO Q8H PRN PRN (Reason: Nausea) Qty: 10 0RF sucralfate [Carafate] 1 gram tablet 1 g PO BID 7 Days Qty: 14 0RF pantoprazole [Protonix] 40 mg tablet,delayed release (DR/EC) 40 mg PO DAILY Qty: 30 2RF ondansetron 4 mg tablet,disintegrating 4 mg PO Q8H PRN PRN (Reason: Nausea) Qty: 20 0RF dicyclomine 20 mg tablet 20 mg PO TID Qty: 20 0RF Primary Care Provider: Care Physician,No Primary Referrals: Care Physician,No Primary [Primary Care Provider] - Activity Restrictions/Additional Instructions: Please follow-up with your primary care physician for further evaluation and treatment of your pain. Print Language: Frisian Disposition Disposition: Home, Self Care
--- NOTE | 2024-07-19 07:31 | ED.RN ---
CONTINUES TO COMPLAIN OF BACK PAIN STATES ITS MY KIDNEYS. I TESS VALDEZ. DR JONES AWARE AMBULATED TO BATHROOM TO ATTEMPT TO GIVE A URINE SAMPLE
[2024-07-19 07:46] LABS: Mucous, Urine 0 SEEN /hpf (<or=2+); Red Blood Cells-Urine 0 SEEN /hpf (0-5)
[2024-07-19 07:58] LABS: Color, Urine Yellow (Yellow); Glucose, Dipstick Normal (Normal); Leukocyte Esterase-Dipstick 500 /ul (Negative); Nitrite-Dipstick Negative (Negative); Occult Blood-Urine Negative /ul (Negative); Protein-Dipstick 30 mg/dl (Negative); Specific Gravity, Urine 1.025 (1.002-1.030); Urine Bilirubin Dipstick Negative (Negative); Urine Clarity Sl. Cloudy (Clear); Urine Urobilinogen 1 mg/dl (Normal)
[2024-07-19 08:00] LABS: Ketone-Dipstick 150 mg/dl (Negative)
[2024-07-19 08:35] LABS: White Blood Cells 10-25 SEEN /hpf (0-5)
[2024-07-19 08:36] LABS: Bacteria 2+ /hpf (None Seen); Squamous Epithelial Cells - UA 10-25 SEEN /hpf (5-10)
== END 2024-07-19 08:46 | disposition home or self-care (01) ==
PROVIDERS: Emergency Provider Emergency Medicine; Visit Provider Emergency Medicine
DX: M54.9 Dorsalgia, unspecified (principal); G89.29 Other chronic pain; F17.290 Nicotine dependence, other tobacco product, uncomplicated
CPT/HCPCS: 81001; 96372; 99284

== ENCOUNTER 2024-08-12 13:42 | Emergency (ER) | payer MEDICAID, OTHER, SELFPAY ==
[2024-08-12] VITALS (7 sets, daily range): BP systolic 89–138; BP diastolic 70–92; PULSE 66–89; RESP 16–18; TEMP 36.2–36.9; O2SAT 96–100; BMI 21.9
--- NOTE | 2024-08-12 15:15 | RAD_ITS ---
PROCEDURE: Chest radiographs REASON FOR EXAM: Chest pain TECHNIQUE: Two views of the chest COMPARISON: None FINDINGS: Cardiomediastinal silhouette is within normal limits. Lungs are clear. No sizable pneumothorax. RAD/Chest PA and Lateral IMPRESSION: No acute airspace abnormality. Reading Location: [place]
[2024-08-12 15:59] LABS: Absolute Lymphocyte Count 2.11 X10^3/uL (0.83-4.51); Basophil# 0.02 X10^3/uL; Basophil% 0.3 % (0-1); Eosinophil# 0.08 X10^3/uL; Eosinophils% 1.2 % (0-5); Hematocrit 28.3 % (37-47); Hemoglobin 8.8 g/dL (12.0-15.0); Lymphocyte # 2.11 X10^3/ul (0.83-4.51); Lymphocyte % 31.8 % (19-41); Mean Corp Hgb Conc 31.1 g/dL (32-36); Mean Corpuscular Hgb 22.9 pg (27.0-32.0); Mean Corpuscular Volume 73.7 fL (81-99); Mean Platelet Vol. 9.7 fl (6.2-12.0); Monocyte# 0.35 X10^3/uL; Monocyte% 5.3 % (0-10); NRBC Flagged by Analyzer 0 % (0-5); Neutrophil # 4.04 X10^3/uL (2.7-7.7); Neutrophil % 60.9 % (47-70); Platelet Count 265 K/mm3 (150-450); RBC Distribution Width CV 15.7 % (11.6-14.6); RBC Distribution Width SD 41.2 fl (35.1-43.9); Red Blood Count 3.84 M/mm3 (4.2-5.4); White Blood Count 6.6 K/mm3 (4.4-11.0)
[2024-08-12 16:32] LABS: Anion Gap 6 (5-15); BUN 8 mg/dL (7-18); BUN/Creat Ratio 12.9 RATIO (10-20); Calcium,Total 8.9 mg/dL (8.5-10.1); Chloride 101 mmol/L (98-107); Creatinine, Serum 0.62 mg/dL (0.55-1.02); EST Glomerular Filtration Rate 110 mL/min (>60); Est Glom Filt Rate - Afr Amer 134 mL/min (>60); Glucose 114 mg/dL (74-106); Potassium 2.8 mmol/L (3.5-5.1); Sodium Level 139 mmol/L (136-145); Troponin-I HS (w/2H Reflex) 5 pg/mL (3.0-54.0)
--- NOTE | 2024-08-12 16:38 | CT_ITS ---
PROCEDURE: CTA CHST, ABD, PEL W AND/OR WO REASON FOR EXAM: Right-sided abdominal pain. TECHNIQUE: IV contrast was administered and helical images were acquired through the chest, abdomen and pelvis. Multiplanar reformats were obtained. 3D reconstructions. One or more dose reduction techniques were used (e.g., Automated exposure control, adjustment of the mA and/or kV according to patient size, use of iterative reconstruction technique). IV CONTRAST: 100 mL Isovue 370 COMPARISON: CT of the abdomen and pelvis on 05/14/2024. FINDINGS: CTA chest: The aorta is normal in course and caliber without aneurysm or dissection identified. Heart size and pulmonary vascularity are normal. Although not timed for evaluation of the pulmonary arteries, no pulmonary arterial filling defect is seen. The pericardium is thin and normal appearing. No coronary artery calcifications identified. The esophagus is mildly thick walled and hyperemic diffusely. Subcentimeter periesophageal lymph nodes are noted. There is dependent bibasilar subsegmental atelectasis. Lungs are otherwise clear. The central airways are patent. No pleural effusion or pneumothorax is seen. The patient is status post kyphoplasty at T10 and T12. Age-indeterminate chronic appearing compression deformities are seen at T8, T6, T5, T3. CTA abdomen and pelvis: The aorta is mildly atherosclerotic and normal in caliber. The celiac axis, superior mesenteric artery, renal arteries, and inferior mesenteric artery are widely patent. The liver, spleen, pancreas, and gallbladder are normal. Adrenal glands, kidneys, ureters, urinary bladder are normal. There is a moderate amount of stool in the colon. The appendix is not seen and may be surgically absent. No secondary findings for acute appendicitis. No free intraperitoneal air or fluid. No pneumatosis or portal venous gas. No acute osseous abnormality. Uterus and adnexae are normal. CT/CTA Chst, Abd, Pel W and/or WO IMPRESSION: NEGATIVE FOR DISSECTION OR ANEURYSM IN THE CHEST, ABDOMEN OR PELVIS. DIFFUSE ESOPHAGITIS. CONSIDER ENDOSCOPY FOR FURTHER EVALUATION. Reading Location: [id number]
--- NOTE | 2024-08-12 16:45 | EDS_ITS ---
HPI History of Present Illness Chief Complaint: Chest Pain Narrative Narrative: Patient is a 43-year-old female with past medical history of pancreatitis, gastritis, esophagitis, GERD who presents to the emergency department the chief complaint of right sided chest pain. She states that it has been there for approximately 8 days does radiate to her back. Patient states that she has had some associated shortness of breath but denies any history of blood clots denies any blood thinner medication denies any recent travels. Patient states that she has not had a bowel movement in approximately a week and a half. Patient states that she is passing gas. [facility] Medical History Esophagitis GERD (gastroesophageal reflux disease) Pancreatitis Home Medications ?Medication ?Instructions ?Recorded ?Last Taken ?Type buprenorphine 8 mg-naloxone 2 mg 0 ea sublingual 05/14 Unknown History sublingual film bupropion HCl 150 mg 24 hr tablet, 150 mg PO 05/14/24 Unknown History extended release buspirone 15 mg tablet 15 mg PO TID 05/14/24 Unknow n History hydroxyzine pamoate 50 mg capsule 50 mg PO BID 4 Unknown History lamotrigine 100 mg tablet 100 mg PO BID 05/14/24 Unkno wn History ondansetron 4 mg disintegrating 4 mg PO Q8H PRN PRN Na usea #10 tabs 05/14/24 Unknown Rx tablet pantoprazole 40 mg tablet,delayed 40 mg PO DAILY #21 t abs 05/14/24 Unknown Rx release (Protonix) prazosin 2 mg capsule 2 mg PO QHS 05/14/24 Unknown History quetiapine 100 mg tablet 100 mg PO QHS 05/14/24 Unkno wn History quetiapine 400 mg tablet 400 mg PO QHS 05/14/24 Unkno wn History quetiapine 50 mg tablet 50 mg PO DAILY 05/14/24 Unkn own History sucralfate 1 gram tablet (Carafate) 1 g PO BID 7 days #14 tabs 05/14/24 Unknown Rx trazodone 100 mg tablet 200 mg PO QHS 05/14/24 Unkno wn History dicyclomine 20 mg tablet 20 mg PO TID #20 tabs Unknown Rx ondansetron 4 mg disintegrating 4 mg PO Q8H PRN PRN Na usea #20 tabs 06/28/24 Unknown Rx tablet pantoprazole 40 mg tablet,delayed 40 mg PO DAILY #30 t abs 06/28/24 Unknown Rx release (Protonix) potassium chloride 20 mEq oral 20 meq PO BID 5 days #3 0 ea 08/12/24 Unknown Rx packet Allergy/AdvReac Type Severity Reaction Status Date / Time shellfish derived Allergy Severe Anaphylaxis Verified 08/12/24 13:42 phenytoin (From Dilantin) AdvReac Intermediate Vomiting Verified 08/12/24 13:42 Social History Smoking Status: Current every day smoker tobacco type: e-cigarettes ROS ROS ED ROS Narrative Constitutional: Denies headache, fevers, chills, lightness, dizziness Eyes: Denies change in vision double vision blurry vision Cardiovascular: Complains of chest pain as noted above denies palpitations Respiratory: Complains of shortness of breath denies coughing wheezing Abdomen: Denies abdominal pain nausea vomit diarrhea : Denies any urinary symptoms Neurological: Denies any numbness, weakness, tingling Musculoskeletal: Complaints of back pain Skin: Denies rashes or lesions EXAM Physical Exam Narrative Exam Narrative: General: Patient lying in bed rest comfortably did not appear to be in acute distress Head: Atraumatic, normocephalic Eyes: PERRL bilaterally, EOMI bilateral, no conjunctival injection noted Neck: Soft, supple, trachea midline Cardiovascular: Regular rate and rhythm no murmurs gallops rubs noted Respiratory: Clear to auscultation bilaterally Abdomen: Soft, nondistended, no tenderness palpation Extremities: Radial pulses +2/4 in the bilateral extremities, +5/5 strength noted in the bilateral upper and lower extremities, no pedal edema on exam Neurological: Patient follow commands knew that she was at [facility] year is 2024 Skin: Warm, dry, intact no rashes or lesions noted Const Vital Signs: 08/12/24 13:43 08/12/24 16:22 08/12/24 16:35 Temperature 97.2 F L Temperature Source Temporal Pulse Rate 89 73 Respiratory Rate 17 16 Respiratory Effort Blood Pressure 89/72 L 96/70 Blood Pressure Mean 77 78 Pulse Ox 98 99 96 Oxygen Delivery Method Room Air Room Air Room Air 08/12/24 17:11 08/12/24 18:39 08/12/24 20:00 Temperature Temperature Source Pulse Rate 72 66 Respiratory Rate 18 18 Respiratory Effort Normal Non-Labored Blood Pressure 119/70 118/85 H Blood Pressure Mean 86 96 Pulse Ox 100 98 Oxygen Delivery Method Room Air Room Air MDM MDM MDM Narrative Medical decision making narrative: Patient is a 43-year-old female who presented to the emergency department with a chief complaint of chest pain and shortness of breath. On the differential diagnose includes but not limited to pulmonary embolism, pneumonia, ACS, p neumothorax, AAA. Once workup is obtained reviewed she will be reevaluated. Patient CBC reviewed showed no evidence leukocytosis white blood count normal at 6.6 hemoglobin was noted be 8.8 which is down from 06/28/2024 which was 13.6 but she denies any dark tarry stools or black stool. Patient's sodium was noted be 139, potassium was noted be 2.8 she was given 60 mill equivalents of potassium supplementation here in the emergency department, creatinine was noted be normal at 0.62. Patient's troponin was noted be 5 with a delta troponin noted to be less than 3. Patient's EKG reviewed and independently interpreted by myself showed sinus rhythm with a rate of 70 bpm., Lipase normal at 23. Patient's chest x-ray reviewed by myself and radiology showed no acute cardiopulmonary processes. Patient CTA chest abdomen pelvis with IV contrast showed no acute dissection or aneurysm in the chest abdomen or pelvis. Diffuse esophagitis consider endoscopy for further evaluation management. Patient did refuse her potassium here in the emergency department. Prescription will be sent to the pharmacy she is advised she needs to take this. Patient given a hard copy of her CT results for her records. She advised to take this to the supervisor delivery department as well as her primary care physician Patient ambulated well here in the emergency department she would like to go home at this point time no evidence hypoxia. At this point I have low suspicion for cardiac etiology as her chest pain has been going on for approximately 8 days has been constant. Nothing makes this better or worse. She was given follow-up with gastroenterology as well as she was encouraged to follow with her primary care physician. She is encouraged return with worsening symptoms and concerns. All question concerns answered she was discharged home in stable condition. Lab Data Labs: Laboratory Results - last 24 hr 08/12/24 08/12/24 15:53 18:20 WBC 6.6 RBC 3.84 L Hgb 8.8 L Hct 28.3 L MCV 73.7 L MCH 22.9 L MCHC 31.1 L RDW Std Deviation 41.2 RDW Coeff of Jovany 15.7 H Plt Count 265 MPV 9.7 Immature Gran % (Auto) 0.500 Neut % (Auto) 60.9 Lymph % (Auto) 31.8 [place] % (Auto) 5.3 Eos % (Auto) 1.2 Baso % (Auto) 0.3 Absolute Neuts (auto) 4.0 Absolute Lymphs (auto) 2.11 Nucleated RBC % 0 Sodium 139 Potassium 2.8 L Chloride 101 Carbon Dioxide 32.0 Anion Gap 6 BUN 8 Creatinine 0.62 Est GFR (MDRD) Af Amer 134 Est GFR (MDRD) Non-Af 110 BUN/Creatinine Ratio 12.9 Glucose 114 H Calcium 8.9 Troponin I High Sens 5 < 3 L Lipase 23 L Radiography Diagnostic Testing: Clinical Impression(s) from Imaging Studies Chest X-Ray 08/12/24 15:15 IMPRESSION: No acute airspace abnormality. Reading Location: [id number] Chest/Abdomen/Pelvis CTA 08/12/24 16:38 IMPRESSION: NEGATIVE FOR DISSECTION OR ANEURYSM IN THE CHEST, ABDOMEN OR PELVIS. DIFFUSE ESOPHAGITIS. CONSIDER ENDOSCOPY FOR FURTHER EVALUATION. Reading Location: [facility] Discharge Plan Triage Chief Complaint: Chest Pain ED Provider: Avery Strickland Dx/Rx/DC Orders Clinical Impression: Chest pain Prescriptions: New potassium chloride 20 mEq packet 20 meq PO BID 5 Days Qty: 30 0RF No Action hydroxyzine pamoate 50 mg capsule 50 mg PO BID quetiapine 100 mg tablet 100 mg PO QHS trazodone 100 mg tablet 200 mg PO QHS lamotrigine 100 mg tablet 100 mg PO BID prazosin 2 mg capsule 2 mg PO QHS buspirone 15 mg tablet 15 mg PO TID bupropion HCl 150 mg tablet extended release 24 hr 150 mg PO quetiapine 50 mg tablet 50 mg PO DAILY quetiapine 400 mg tablet 400 mg PO QHS buprenorphine-naloxone 8-2 mg film 0 ea sublingual pantoprazole [Protonix] 40 mg tablet,delayed release (DR/EC) 40 mg PO DAILY Qty: 21 0RF ondansetron 4 mg tablet,disintegrating 4 mg PO Q8H PRN PRN (Reason: Nausea) Qty: 10 0RF sucralfate [Carafate] 1 gram tablet 1 g PO BID 7 Days Qty: 14 0RF pantoprazole [Protonix] 40 mg tablet,delayed release (DR/EC) 40 mg PO DAILY Qty: 30 2RF ondansetron 4 mg tablet,disintegrating 4 mg PO Q8H PRN PRN (Reason: Nausea) Qty: 20 0RF dicyclomine 20 mg tablet 20 mg PO TID Qty: 20 0RF Primary Care Provider: Care Physician,No Primary Referrals: Care Physician,No Primary [Primary Care Provider] - Mic Beltran DO [Med Staff - Active Staff] - Ruthie Fernandez, SENIOR CLINICAL DATA MANAGER-C [[facility]] - Activity Restrictions/Additional Instructions: Take the potassium as prescribed. Return if worse symptoms and concerns. You need to follow-up with gastroenterology in outpatient setting as well as a primary care physician which she referred to both of these. Return for worsening symptoms or any concerns. Start using MiraLAX encourage bowel movements. Print Language: [place] Disposition Disposition: Home, Self Care
[2024-08-12 17:34] LABS: Lipase 23 U/L (73-393)
[2024-08-12 17:56] LABS: Reflex Troponin-HS? (from REC) Y
--- NOTE | 2024-08-12 18:18 | ED.RN ---
IV wont flush for CT. New IV attempted unsuccessfully by this nurse. Nurse trained to use ultrasound for IV placement notified of need for IV placement.
[2024-08-12] MEDS: Ketorolac 15 MG/ML Vial IV (18:26)
[2024-08-12] MEDS: Potassium Chloride 10mEq/100mL 10 MEQ/100 ML IV.SOLN. 100 MEQ IV BOLUS ×2 (18:32→20:08)
[2024-08-12 18:50] LABS: Troponin-I HS < 3 pg/mL (3.0-54.0)
--- NOTE | 2024-08-12 20:10 | ED.RN ---
Patient refused oral potassium d/t her esophagitis flare up causing too much pain. Patient educated by this RN. notified.
[2024-08-13 14:45] LABS: BNP,B-Type NATRIURETIC PEPTIDE 76.5 pg/mL (0-100)
== END 2024-08-12 22:01 | disposition home or self-care (01) ==
PROVIDERS: Emergency Provider Emergency Medicine; Visit Provider Emergency Medicine
DX: R07.9 Chest pain, unspecified (principal); F17.290 Nicotine dependence, other tobacco product, uncomplicated
CPT/HCPCS: 71046; 71275; 74174; 80048; 83690; 83880; 84484; 85025; 93005; 96365; 96366; 96375; 96376; 99285; Q9967; A4216